=== PATIENT | female | born 1985 | race Caucasian/White ===

== ENCOUNTER → 2017-10-08 | Outpatient (CLI) | payer OTHER ==
[~2017-10-08] MED LIST: BUTASPCAFT; IBUP800 PO; LANOLIN TP; LEVSOD50 PO; NAPR375 PO; PRENATA CHEWAB1 EACH PO; RIZATRIPTAN10 MG; SUMA25 PO; TOPI25 PO
[2017-10-08 13:14] LABS: Appearance, Urine Hazy (Clear); Blood, Urine 2+ (Neg); Glucose Qualitative, Urine Neg (Neg); Ketones, Urine Neg (Neg); Leukocyte Esterase, Urine Neg (Neg); Nitrite, Urine Pos (Neg); Protein, Urine 1+ (Neg); Urobilinogen, Urine 3+ (Normal)
[2017-10-08 13:55] LABS: Bilirubin, Urine 2+ (Neg)
[2017-10-08 13:56] LABS: Bacteria Many /hpf; Color, Urine Orange (P-Yellow); Squamous Epithelial Cells Few /hpf (Few)
== END ==
LOC: LAB 12:33 → LAB SHORT 12:33
PROVIDERS: Obstetrics & Gynecology
DX: R35.0 Frequency of micturition (principal)
CPT/HCPCS: 81001; 87077; 87086; 87186

== ENCOUNTER → 2019-12-19 | Outpatient (CLI) | payer OTHER ==
[2019-12-19 16:53] LABS: Source, Urine Clean Catch
[2019-12-19 18:17] LABS: Bilirubin, Urine Neg (Neg); Blood, Urine 1+ (Neg); Glucose Qualitative, Urine 1+ (Neg); Ketones, Urine 2+ (Neg); Leukocyte Esterase, Urine 3+ (Neg); Nitrite, Urine Neg (Neg); Protein, Urine 1+ (Neg); Urobilinogen, Urine NORM (Normal)
[2019-12-19 18:28] LABS: Appearance, Urine Turbid (Clear); Color, Urine Yellow (P-Yellow)
[2019-12-19 18:31] LABS: Amorphous Heavy (0-Heavy); Bacteria Many /hpf; Calcium Oxalate Crystals Mod /hpf; Red Blood Cells, Urine 0-2 /hpf (0-2); Squamous Epithelial Cells Few /hpf (Few)
== END | disposition home or self-care (01) ==
LOC: LAB SHORT 16:46 → LAB 16:46
PROVIDERS: Obstetrics & Gynecology
DX: O09.523 Supervision of elderly multigravida, third trimester (principal)
CPT/HCPCS: 81001; 87086

== ENCOUNTER → 2020-01-31 | Outpatient (CLI) | payer OTHER | LOC: LAB SHORT 17:00 → LAB 17:00 | DX: O09.523 Supervision of elderly multigravida, third trimester (principal) | CPT/HCPCS: 87081; 87653 ==

== ENCOUNTER 2020-02-28 15:53 | Inpatient (IN) | payer OTHER ==
[~2020-02-28] VITALS: Ht 177.8 cm; Wt 109.0 kg
[2020-02-28 16:50] LABS: BASOPHILS ABSOLUTE AUTO 0.01 K/mm3 (0.00-0.23); BASOPHILS PERCENT AUTO 0 % (0-2); EOSINOPHILS ABSOLUTE AUTO 0.04 K/mm3 (0.00-0.68); EOSINOPHILS PERCENT AUTO 0 % (0-6); Hematocrit 41.6 % (33.0-51.0); Hemoglobin 13.4 g/dL (11.5-16.0); IMMATURE GRAN ABSOLUTE AUTO 0.03 K/mm3 (0.00-0.10); IMMATURE GRAN PERCENT AUTO 0 % (0-1); LYMPHOCYTES ABSOLUTE AUTO 1.89 K/mm3 (0.84-5.20); LYMPHOCYTES PERCENT AUTO 19 % (21-46); MONOCYTES ABSOLUTE AUTO 0.87 K/mm3 (0.16-1.47); MONOCYTES PERCENT AUTO 9 % (4-13); Mean Corpuscular HGB 29.3 pg (26.0-34.0); Mean Corpuscular HGB Conc 32.2 g/dL (31.5-36.5); Mean Corpuscular Volume 91 fL (80-100); Mean Platelet Volume 10.8 fL (9.1-12.4); NEUTROPHILS PERCENT AUTO 71 % (41-73); Platelet Count 291 K/mm3 (150-400); RDW Coefficient Variation 15.2 % (11.7-14.2); RDW Standard Deviation 50.4 fL (35.1-46.3); Red Blood Cell Count 4.58 M/mm3 (3.80-5.20); White Blood Cell Count 9.94 K/mm3 (4.00-11.30)
[2020-02-28] MEDS ORDERED: ZEBUTAL 50-3251 EAC1 (17:37)
[2020-02-28] MEDS ORDERED: PYRI100 PO (17:37)
[2020-02-28] MEDS ORDERED: DICLEGIS DR 101 EAC1 PO (17:37)
[2020-02-28] MEDS ORDERED: FERROUS SULFAT325 M3 (17:38)
[2020-02-28] MEDS ORDERED: PRENATAL TABLE1 EAC2 (17:39)
[2020-02-28] MEDS ORDERED: METO10 PO (17:39)
[2020-02-29 05:23] LABS: Hematocrit 36.8 % (33.0-51.0); Mean Corpuscular HGB 29.6 pg (26.0-34.0); Mean Corpuscular HGB Conc 32.6 g/dL (31.5-36.5); Mean Corpuscular Volume 91 fL (80-100); Mean Platelet Volume 10.7 fL (9.1-12.4); Platelet Count 226 K/mm3 (150-400); RDW Standard Deviation 49.5 fL (35.1-46.3); Red Blood Cell Count 4.05 M/mm3 (3.80-5.20); White Blood Cell Count 15.34 K/mm3 (4.00-11.30)
--- NOTE | 2020-02-29 22:27 | NUR ---
PT DISCHARGED WITH BABY IN [facility], WALKED OUT BY COMPUTER PATTERNMAKER AT 2200
== END 2020-02-29 20:04 | disposition home or self-care (01) | DRG 807 ==
LOC: OBS 15:53 → BC 16:04
PROVIDERS: ADMIT Obstetrics & Gynecology
PROC: 10E0XZZ Delivery of Products of Conception, External Approach (ICD-10-PCS; principal; 2020-02-28)
PROC: 0KQM0ZZ Repair Perineum Muscle, Open Approach (ICD-10-PCS; 2020-02-28)
PROC: 00HU33Z Insertion of Infusion Device into Spinal Canal, Percutaneous Approach (ICD-10-PCS; 2020-02-28)
PROC: 3E0R3BZ Introduction of Anesthetic Agent into Spinal Canal, Percutaneous Approach (ICD-10-PCS; 2020-02-28)
DX: O42.02 Full-term premature rupture of membranes, onset of labor within 24 hours of rupture (principal); Z37.0 Single live birth; O99.824 Streptococcus B carrier state complicating childbirth; O69.89X0 Labor and delivery complicated by other cord complications, not applicable or unspecified; Z20.828 Contact with and (suspected) exposure to other viral communicable diseases; Z3A.40 40 weeks gestation of pregnancy; O70.1 Second degree perineal laceration during delivery; O99.214 Obesity complicating childbirth; E66.9 Obesity, unspecified
CPT/HCPCS: 36415; 51702; 85025; 85027; 86850; 86900; 86901; J2590; J3010; J7120; U0004

== ENCOUNTER 2020-04-02 21:41 | Emergency (ER) | payer OTHER ==
[~2020-04-02] VITALS: Ht 177.8 cm; Wt 97.5 kg
[~2020-04-02 21:41] MED LIST changes: +DICLEGIS DR 101 EAC1 PO; +FERROUS SULFAT325 M3; +METO10 PO; +PRENATAL TABLE1 EAC2; +PYRI100 PO; +ZEBUTAL 50-3251 EAC1
[2020-04-02 22:09] LABS: BASOPHILS ABSOLUTE AUTO 0.02 K/mm3 (0.00-0.23); BASOPHILS PERCENT AUTO 0 % (0-2); EOSINOPHILS ABSOLUTE AUTO 0.29 K/mm3 (0.00-0.68); EOSINOPHILS PERCENT AUTO 4 % (0-6); Hematocrit 45.1 % (33.0-51.0); Hemoglobin 14.6 g/dL (11.5-16.0); IMMATURE GRAN ABSOLUTE AUTO 0.01 K/mm3 (0.00-0.10); IMMATURE GRAN PERCENT AUTO 0 % (0-1); LYMPHOCYTES ABSOLUTE AUTO 2.95 K/mm3 (0.84-5.20); LYMPHOCYTES PERCENT AUTO 37 % (21-46); MONOCYTES ABSOLUTE AUTO 0.61 K/mm3 (0.16-1.47); MONOCYTES PERCENT AUTO 8 % (4-13); Mean Corpuscular HGB 29.7 pg (26.0-34.0); Mean Corpuscular HGB Conc 32.4 g/dL (31.5-36.5); Mean Corpuscular Volume 92 fL (80-100); NEUTROPHILS ABSOLUTE AUTO 4.07 K/mm3 (1.96-9.15); NEUTROPHILS PERCENT AUTO 51 % (41-73); Platelet Count 243 K/mm3 (150-400); RDW Coefficient Variation 13.3 % (11.7-14.2); RDW Standard Deviation 45.3 fL (35.1-46.3); Red Blood Cell Count 4.91 M/mm3 (3.80-5.20); White Blood Cell Count 7.95 K/mm3 (4.00-11.30)
[2020-04-02 22:27] LABS: Alanine Aminotransfer (ALT/SGP 47 U/L (12-78); Albumin, Blood 3.5 g/dL (3.4-5.0); Alk Phos 173 U/L (50-136); Anion Gap 5 mmol/L (6-16); Aspartate Aminotrans (AST/SGOT 60 U/L (12-37); Bilirubin, Total 0.3 mg/dL (0.1-1.0); Blood Urea Nitrogen 15 mg/dL (8-24); Bun/Creatinine Ratio 22.4 (12.0-20.0); CO2, Blood 27 mmol/L (21-32); Chloride, Blood 110 mmol/L (98-108); Creatinine, Blood 0.67 mg/dL (0.40-1.00); Globulin, Blood 3.4 g/dL (2.2-4.0); Glomerular Filtration Rate >60 (60-); Glucose, Blood 107 mg/dL (70-99); Potassium, Blood 3.3 mmol/L (3.5-5.5); Sodium, Blood 142 mmol/L (136-145); Total Protein, Blood 6.9 g/dL (6.4-8.2)
[2020-04-02] MEDS ORDERED: Prozac20 MG PO (22:59)
[2020-04-02] MEDS ORDERED: [UNRECOGNIZED DRUG - OTHER] (23:00)
[2020-04-02 23:07] LABS: Source, Urine Clean Catch
[2020-04-02 23:11] LABS: Bilirubin, Urine Neg (Neg); Blood, Urine 1+ (Neg); Glucose Qualitative, Urine Neg (Neg); Ketones, Urine Neg (Neg); Leukocyte Esterase, Urine 3+ (Neg); Nitrite, Urine Neg (Neg); Protein, Urine 1+ (Neg); Urobilinogen, Urine 1+ (Normal)
[2020-04-02 23:14] LABS: Appearance, Urine Clear (Clear); Color, Urine Yellow (P-Yellow)
[2020-04-02] MEDS ORDERED: Norco 5-325 Ta1 EACH PO (23:20)
[2020-04-02 23:26] LABS: Bacteria Many /hpf; Mucus Light (0-Heavy); Red Blood Cells, Urine 0-2 /hpf (0-2); Squamous Epithelial Cells Many /hpf (Few)
== END 2020-04-03 00:01 | disposition home or self-care (01) ==
LOC: ER 21:41
PROVIDERS: Physician Assistant
DX: K80.50 Calculus of bile duct without cholangitis or cholecystitis without obstruction (principal); J45.909 Unspecified asthma, uncomplicated; Z88.6 Allergy status to analgesic agent; Z88.5 Allergy status to narcotic agent; Z79.899 Other long term (current) drug therapy
CPT/HCPCS: 36415; 76705; 80053; 81001; 81025; 83690; 85025; 87086; 96374; 99284-25; J2405; J7030

== ENCOUNTER → 2020-04-12 | Outpatient (CLI) | payer OTHER ==
[~2020-04-12] MED LIST changes: +Norco 5-325 Ta1 EACH PO; +Prozac20 MG PO; +[UNRECOGNIZED DRUG - OTHER]
== END ==
LOC: LAB 13:35 → LAB SHORT 13:35
DX: N39.0 Urinary tract infection, site not specified (principal)
CPT/HCPCS: 87077; 87086; 87186

== ENCOUNTER 2020-04-30 08:02 | Day surgery (SDC) | payer OTHER ==
[~2020-04-30] VITALS: Ht 177.8 cm; Wt 104.2 kg
--- NOTE | 2020-04-30 08:56 | NUR ---
Ambulatory in Day Surgery History, Chart, Medications and Allergies reviewed before start of procedure.Patient confirms NPO status and agrees with scheduled surgery. Patient reports completing Chlorhexadine shower X2 prior to admission to hospital.Surgical site prepped with 2% Chlorhexidine cloth wipe. Lungs clear T/O to Auscultation. Patient States Post-Procedure ride home has been arranged WITH
--- NOTE | 2020-04-30 14:41 | NUR ---
Patient up to Ambulate independently. Gait steady. Discharge instructions reviewed with patient. Patient verbalizes understanding. Copy given to patient to take home. Discharged via wheelchair to private car for ride home.
== END 2020-04-30 22:49 | disposition home or self-care (01) ==
LOC: ORD 08:02 → ORSCMMR 08:02 → ORD 09:30
PROVIDERS: Surgery
PROC: 0FT44ZZ Resection of Gallbladder, Percutaneous Endoscopic Approach (ICD-10-PCS; principal; 2020-04-30 09:30)
PROC: BF031ZZ Plain Radiography of Gallbladder and Bile Ducts using Low Osmolar Contrast (ICD-10-PCS; principal; 2020-04-30 09:30)
DX: K80.10 Calculus of gallbladder with chronic cholecystitis without obstruction (principal); E66.9 Obesity, unspecified; Z68.33 Body mass index [BMI] 33.0-33.9, adult; Z79.899 Other long term (current) drug therapy
CPT/HCPCS: 74300; 88304; C1729; J0690; J1100; J1885; J2250; J2405; J2704; J3010; J7120

== ENCOUNTER → 2022-03-02 | Outpatient (CLI) | payer OTHER | END | disposition home or self-care (01) | LOC: LAB 08:30 → LAB SHORT 08:30 | DX: R30.0 Dysuria (principal) | CPT/HCPCS: 87086 ==

== ENCOUNTER → 2022-06-30 | Outpatient (CLI) | payer OTHER ==
[2022-06-30 15:41] LABS: Source, Urine Clean Catch
[2022-06-30 16:52] LABS: Appearance, Urine Cloudy (Clear); Bilirubin, Urine Neg (Neg); Blood, Urine 4+ (Neg); Color, Urine Yellow (P-Yellow); Glucose Qualitative, Urine Neg (Neg); Ketones, Urine Neg (Neg); Leukocyte Esterase, Urine 3+ (Neg); Nitrite, Urine Neg (Neg); Protein, Urine 2+ (Neg); Urobilinogen, Urine NORM (Normal)
[2022-06-30 17:27] LABS: Bacteria Many /hpf; Red Blood Cells, Urine 50-100 /hpf (0-2); Squamous Epithelial Cells Few /hpf (Few); White Blood Cells, Urine 50-100 /hpf (0-5)
== END | disposition home or self-care (01) ==
LOC: LAB SHORT 15:38 → LAB 15:38
PROVIDERS: Obstetrics & Gynecology
DX: R30.9 Painful micturition, unspecified (principal)
CPT/HCPCS: 81001; 87077; 87086; 87186

== ENCOUNTER 2023-11-01 15:21 | Emergency (ER) | payer OTHER ==
[~2023-11-01] VITALS: Ht 177.8 cm; Wt 108.4 kg
[2023-11-01] MEDS ORDERED: Ketorolac Tromethamine 15mg Vial IV ONE (15:55)
[2023-11-01] MEDS ORDERED: DiphenhydrAMINE HCl 50 MG/ML 1ML Vial IV ONE (15:55)
[2023-11-01] MEDS ORDERED: NS 1,000 ML IV SCH (15:55)
[2023-11-01] MEDS ORDERED: Prochlorperazine Edisylate 10 mg Vial IV ONE (15:55)
[2023-11-01 16:37] LABS: BASOPHILS ABSOLUTE AUTO 0.03 K/mm3 (0.00-0.23); BASOPHILS PERCENT AUTO 0 % (0-2); EOSINOPHILS ABSOLUTE AUTO 0.01 K/mm3 (0.00-0.68); EOSINOPHILS PERCENT AUTO 0 % (0-6); Hematocrit 45.8 % (33.0-51.0); IMMATURE GRAN ABSOLUTE AUTO 0.03 K/mm3 (0.00-0.10); IMMATURE GRAN PERCENT AUTO 0 % (0-1); LYMPHOCYTES ABSOLUTE AUTO 0.95 K/mm3 (0.84-5.20); LYMPHOCYTES PERCENT AUTO 10 % (21-46); MONOCYTES ABSOLUTE AUTO 0.78 K/mm3 (0.16-1.47); MONOCYTES PERCENT AUTO 9 % (4-13); Mean Corpuscular HGB 29.1 pg (26.0-34.0); Mean Corpuscular HGB Conc 32.8 g/dL (31.5-36.5); Mean Corpuscular Volume 89 fL (80-100); Mean Platelet Volume 9.6 fL (9.1-12.4); NEUTROPHILS ABSOLUTE AUTO 7.43 K/mm3 (1.96-9.15); NEUTROPHILS PERCENT AUTO 81 % (41-73); Platelet Count 343 K/mm3 (150-400); RDW Coefficient Variation 13.2 % (11.7-14.2); RDW Standard Deviation 42.7 fL (35.1-46.3); Red Blood Cell Count 5.15 M/mm3 (3.80-5.20); White Blood Cell Count 9.23 K/mm3 (4.00-11.30)
[2023-11-01 16:39] LABS: Influenza A, PCR NEGATIVE (NEGATIVE); Influenza B, PCR NEGATIVE (NEGATIVE); Resp Syncytial Virus, PCR NEGATIVE (NEGATIVE); SARS-Cov-2 (COVID-19) PCR, MMC NEGATIVE (NEGATIVE)
[2023-11-01 17:02] LABS: Albumin, Blood 3.8 g/dL (3.4-5.0); Albumin/Globulin Ratio 1.1 (0.8-1.8); Bilirubin, Total 0.8 mg/dL (0.1-1.0); Bun/Creatinine Ratio 15.3 (12.0-20.0); Calcium, Blood 8.9 mg/dL (8.5-10.1); Creatinine, Blood 0.72 mg/dL (0.40-1.00); Globulin, Blood 3.5 g/dL (2.2-4.0); Potassium, Blood 3.8 mmol/L (3.5-5.5); Total Protein, Blood 7.3 g/dL (6.4-8.2)
[2023-11-01 18:01] VITALS: BP 107/59
== END 2023-11-01 18:04 | disposition home or self-care (01) ==
LOC: ER 15:21
PROVIDERS: Student in an Organized Health Care Education/Training Program
DX: R51.9 Headache, unspecified (principal); R10.9 Unspecified abdominal pain; J45.909 Unspecified asthma, uncomplicated; Z79.899 Other long term (current) drug therapy; Z91.018 Allergy to other foods
CPT/HCPCS: 0241U; 80053; 83690; 85025; 96361; 96374; 96375; 99284-25; J0780; J1200; J1885; J7030

== ENCOUNTER 2024-11-27 16:14 | Observation (INO) | payer OTHER ==
[~2024-11-27] VITALS: Ht 177.8 cm; Wt 104.3 kg
[~2024-11-27 16:14] MED LIST changes: -[UNRECOGNIZED DRUG - OTHER]; +[UNRECOGNIZED DRUG - OTHER] PO
[2024-11-27] MEDS ORDERED: TOPI25 PO (16:29)
[2024-11-27] MEDS ORDERED: Ondansetron HCl 2 MG / ML 2ML Vial IV ONE ×2 (16:30→18:05)
[2024-11-27 17:12] LABS: BASOPHILS ABSOLUTE AUTO 0.05 K/mm3 (0.00-0.23); BASOPHILS PERCENT AUTO 1 % (0-2); EOSINOPHILS ABSOLUTE AUTO 0.24 K/mm3 (0.00-0.68); EOSINOPHILS PERCENT AUTO 2 % (0-6); Hematocrit 42.2 % (33.0-51.0); Hemoglobin 13.4 g/dL (11.5-16.0); IMMATURE GRAN ABSOLUTE AUTO 0.03 K/mm3 (0.00-0.10); IMMATURE GRAN PERCENT AUTO 0 % (0-1); LYMPHOCYTES ABSOLUTE AUTO 2.52 K/mm3 (0.84-5.20); LYMPHOCYTES PERCENT AUTO 23 % (21-46); MONOCYTES ABSOLUTE AUTO 0.70 K/mm3 (0.16-1.47); MONOCYTES PERCENT AUTO 7 % (4-13); Mean Corpuscular HGB Conc 31.8 g/dL (31.5-36.5); Mean Corpuscular Volume 91 fL (80-100); NEUTROPHILS ABSOLUTE AUTO 7.28 K/mm3 (1.96-9.15); NEUTROPHILS PERCENT AUTO 67 % (41-73); NRBC ABSOLUTE 0.00 K/mm3 (0.00-0.02); NRBC Auto 0.0 /100 WBC (0.0-0.2); Platelet Count 358 K/mm3 (150-400); RDW Coefficient Variation 13.3 % (11.7-14.2); RDW Standard Deviation 44.1 fL (35.1-46.3)
[2024-11-27 17:28] LABS: Alanine Aminotransfer (ALT/SGP 19.0 U/L (12-78); Albumin, Blood 3.8 g/dL (3.4-5.0); Albumin/Globulin Ratio 1.2 (0.8-1.8); Anion Gap 9.0 mmol/L (3-11); Aspartate Aminotrans (AST/SGOT 16.0 U/L (12-37); Bilirubin, Total 0.3 mg/dL (0.1-1.0); Blood Urea Nitrogen 15.0 mg/dL (8-24); CO2, Blood 22.0 mmol/L (21-32); Calcium, Blood 8.7 mg/dL (8.5-10.1); Chloride, Blood 113.0 mmol/L (98-108); Creatinine, Blood 0.82 mg/dL (0.40-1.00); Globulin, Blood 3.2 g/dL (2.2-4.0); Glucose, Blood 119.0 mg/dL (70-99); Potassium, Blood 3.7 mmol/L (3.5-5.5); Sodium, Blood 140.0 mmol/L (136-145); Total Protein, Blood 7.0 g/dL (6.4-8.2)
[2024-11-27] MEDS ORDERED: NS 1,000 ML IV SCH (17:50)
[2024-11-27] MEDS ORDERED: RIZATRIPTAN10 M3 PO (18:18)
[2024-11-27 18:36] LABS: Source, Urine Clean Catch
[2024-11-27 18:46] LABS: Bilirubin, Urine Neg (Neg); Color, Urine Yellow (P-Yellow); Glucose Qualitative, Urine Neg (Neg); Ketones, Urine 1+ (Neg); Leukocyte Esterase, Urine Neg (Neg); Protein, Urine Neg (Neg); Specific Gravity, Urine 1.010 (1.003-1.022); Urobilinogen, Urine NORM (Normal)
[2024-11-27 19:05] LABS: Red Blood Cells, Urine 0-2 /hpf (0-2); White Blood Cells, Urine 0-2 /hpf (0-5)
[2024-11-27] MEDS ORDERED: FentaNYL Citrate 50 MCG/ML 2 ML Injection IV PRN (19:05)
[2024-11-27] MEDS ORDERED: Metoclopramide HCl 5MG / ML 2ML Vial IV ONE (22:50)
[2024-11-27] MEDS ORDERED: Prochlorperazine Edisylate 10 mg Vial IV PRN (23:45)
[2024-11-27] MEDS ORDERED: Ondansetron HCl 2 MG / ML 2ML Vial IV PRN (23:45)
[2024-11-28] MEDS ORDERED: TOPI25 PO (00:27)
[2024-11-28 01:43] VITALS: BP 120/82
--- NOTE | 2024-11-28 06:12 | NUR ---
SHIFT SUMMARY: Pt is admitted for pain with nausea and is a full code. Is alert and able to make needs known. ADLs have been IND. stated that she had some low level pain that was given APAP. iv to right AC is patent with dressing that is CDI. currently running LR at 125. Denies nausea when asked.
[2024-11-28 06:19] LABS: BASOPHILS ABSOLUTE AUTO 0.05 K/mm3 (0.00-0.23); BASOPHILS PERCENT AUTO 0 % (0-2); EOSINOPHILS ABSOLUTE AUTO 0.07 K/mm3 (0.00-0.68); EOSINOPHILS PERCENT AUTO 1 % (0-6); Hematocrit 39.7 % (33.0-51.0); Hemoglobin 13.0 g/dL (11.5-16.0); IMMATURE GRAN ABSOLUTE AUTO 0.04 K/mm3 (0.00-0.10); IMMATURE GRAN PERCENT AUTO 0 % (0-1); LYMPHOCYTES ABSOLUTE AUTO 3.59 K/mm3 (0.84-5.20); LYMPHOCYTES PERCENT AUTO 29 % (21-46); MONOCYTES ABSOLUTE AUTO 0.90 K/mm3 (0.16-1.47); MONOCYTES PERCENT AUTO 7 % (4-13); Mean Corpuscular HGB Conc 32.7 g/dL (31.5-36.5); Mean Corpuscular Volume 91 fL (80-100); NEUTROPHILS ABSOLUTE AUTO 7.90 K/mm3 (1.96-9.15); NEUTROPHILS PERCENT AUTO 63 % (41-73); NRBC ABSOLUTE 0.00 K/mm3 (0.00-0.02); NRBC Auto 0.0 /100 WBC (0.0-0.2); Platelet Count 327 K/mm3 (150-400); RDW Coefficient Variation 13.2 % (11.7-14.2); RDW Standard Deviation 43.7 fL (35.1-46.3)
[2024-11-28 06:49] LABS: Alanine Aminotransfer (ALT/SGP 16.0 U/L (12-78); Albumin, Blood 3.4 g/dL (3.4-5.0); Albumin/Globulin Ratio 1.1 (0.8-1.8); Anion Gap 9.0 mmol/L (3-11); Aspartate Aminotrans (AST/SGOT 13.0 U/L (12-37); Bilirubin, Total 0.4 mg/dL (0.1-1.0); Blood Urea Nitrogen 7.0 mg/dL (8-24); CO2, Blood 23.0 mmol/L (21-32); Calcium, Blood 8.3 mg/dL (8.5-10.1); Chloride, Blood 111.0 mmol/L (98-108); Creatinine, Blood 0.67 mg/dL (0.40-1.00); Globulin, Blood 3.0 g/dL (2.2-4.0); Glucose, Blood 121.0 mg/dL (70-99); Magnesium, Blood 2.1 mg/dL (1.6-2.4); Potassium, Blood 3.2 mmol/L (3.5-5.5); Sodium, Blood 140.0 mmol/L (136-145); Total Protein, Blood 6.4 g/dL (6.4-8.2)
[2024-11-28 07:14] VITALS: BP 111/70
--- NOTE | 2024-11-28 09:21 | NUR ---
Pt. is awake in bed when she welcomes my visit. Pt. 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 Pt. verbalized some details of her journey to the hospital. Pt. is unsettled by an uncertain diagnosis. Listened with empathy and a calming presence. Seek to normalize the Pt. experience. Prayed with the Pt. Pt. displayed evidence of being encouraged, and verbalized gratitude for the spiritual care visit.
[2024-11-28] MEDS ORDERED: Rizatriptan Benzoate 10 MG / TAB SoluTab SL PRN (11:25)
--- NOTE | 2024-11-28 11:39 | NUR ---
NOTE DR. ALDRIDGE REPORTED D/C LR AND ADMINISTER POTASSIUM CHLORIDE IV.
[2024-11-28] MEDS ORDERED: Ketorolac Tromethamine 15mg Vial IV ONE (12:55)
--- NOTE | 2024-11-28 15:31 | NUR ---
NOTE DR. ALDRIDGE ROUNDED ON PT. PT REPORTS HEADACHE, HAS HX OF MIGRAINES. DR. ALDRIDGE ORDERED RIZATRIPTAN ONE TIME ADDITIONAL ORDER FOR PAIN. DR. ALDRIDGE REPORTED. "IF UNSUCCESSFUL TRY AGAIN IN TWO HOURS."
[2024-11-28] MEDS ORDERED: Rizatriptan Benzoate 10 MG / TAB SoluTab PO ONE (15:35)
[2024-11-28] MEDS ORDERED: OMEP20ER PO (17:34)
[2024-11-28] MEDS ORDERED: ONDA4ODT MM (17:35)
--- NOTE | 2024-11-28 17:58 | NUR ---
NOTE INQUIRED PHARMACY ABOUT RIZATRIPTAN DOSE. PHARMACY STATED "MAX DOSE IS 20MG.". PT HAD 20MG TODAY. PT REPORTS IMPROVED MIGRAINE FROM LAST DOSE.
--- NOTE | 2024-11-28 18:03 | NUR ---
DISCHARGE NOTE PT A&OX4. PT ADMITTED DUE TO INTACTABLE NAUSEA. PT REPORTS HEADACHE, REPORTS C CHRONIC, "HAS A PAIN REGIMEN PLAN OUTPATIENT." PT INDEPENDENT IN ROOM. DIET WAS ADVANCED PER ORDER. PT RECEIVED ONE DOSE OF ZOFRAN TODAY DUE TO NAUSEA. PT REPORTS IMPROVED AFTER RECEIVING DOSE. PT EATS ADEQUATE. PT POTASSIUM REPLENISHED TODAY. WENT OVER DISCHARGE INSTRUCTIONS AND MEDS WITH PT. IV D/C. MEDS FAXED TO PREFERRED PHARMACY. PT ESCORTED TO PT ENTERANCE BY FOOT BY MAXIMO .
== END 2024-11-28 17:45 | disposition home or self-care (01) ==
LOC: ER 16:14 → MEDS 16:15
PROVIDERS: Student in an Organized Health Care Education/Training Program; ADMIT Student in an Organized Health Care Education/Training Program
DX: R11.0 Nausea (principal); R10.11 Right upper quadrant pain; Z90.49 Acquired absence of other specified parts of digestive tract
CPT/HCPCS: 36415; 74177; 76705; 80053; 81001; 83690; 83735; 84484; 84703; 85025; 87086; 93005; 93010; 96361; 96374-59; 96375; 96376; 99285-25; A9270; G0378; J1885; J2405; J2765; J3010; J3480; J7030; J7120; Q9967

== ENCOUNTER 2025-03-16 08:51 | Day surgery (SDC) | payer OTHER ==
[~2025-03-16] VITALS: Ht 177.8 cm; Wt 102.2 kg
[2025-03-16] VITALS (18 sets, daily range): BP systolic 90–130; BP diastolic 50–83
[~2025-03-16 08:51] MED LIST changes: +OMEP20ER PO; +ONDA4ODT MM; +RIZATRIPTAN10 M3 PO
[2025-03-16] MEDS ORDERED: FentaNYL Citrate 50 MCG/ML 2 ML Injection ONE ×3 (09:00→12:32)
[2025-03-16] MEDS ORDERED: Midazolam HCl 1MG / ML 2ML Vial ONE (09:00)
[2025-03-16] MEDS ORDERED: CeFAZolin Sodium 2,000 MG in NS 100 ML IV SCH (09:10)
[2025-03-16] MEDS ORDERED: PROM25 PO (09:20)
[2025-03-16] MEDS ORDERED: HYDROmorphone HCl/Pf 1MG SYR IV PRN ×2 (09:25→12:25)
[2025-03-16] MEDS ORDERED: Ondansetron HCl 2 MG / ML 2ML Vial IV PRN ×2 (09:25→12:20)
[2025-03-16] MEDS ORDERED: FentaNYL Citrate 50 MCG/ML 2 ML Injection IV PRN ×2 (09:25→09:30)
[2025-03-16] MEDS ORDERED: Ondansetron HCl 2 MG / ML 2ML Vial IV ONE (09:30)
[2025-03-16] MEDS ORDERED: Ketorolac Tromethamine 30mg Vial IV ONE (09:30)
[2025-03-16] MEDS ORDERED: CeFAZolin Sodium 2,000 MG VIAL ONE (09:35)
--- NOTE | 2025-03-16 09:46 | NUR ---
History, Chart, Medications and Allergies reviewed before start of procedure. Patient confirms NPO status and agrees with scheduled surgery. Pre-Op teaching done. Pt verbalizes understanding. Patient reports completing Chlorhexadine shower X2 prior to admission to hospital. Lungs clear T/O to Auscultation.
[2025-03-16] MEDS ORDERED: Bupivacaine 0.5% W/EPI 1:200000 SDV 30 ML Vial ONE (09:52)
[2025-03-16] MEDS ORDERED: Ketorolac Tromethamine 30mg Vial ONE ×3 (10:23→12:57)
[2025-03-16] MEDS ORDERED: Ondansetron HCl 2 MG / ML 2ML Vial ONE ×2 (10:23→12:57)
[2025-03-16] MEDS ORDERED: Dexamethasone Sod Phos 10 MG/ML 1ML VIAL ONE ×2 (10:23→12:57)
[2025-03-16] MEDS ORDERED: Glycopyrrolate 0.2 MG/ML 5ML VIAL ONE (11:00)
[2025-03-16] MEDS ORDERED: Sugammadex Sodium 200 MG/2ML SDV (100 MG/ML) ONE (11:57)
[2025-03-16] MEDS ORDERED: Metoclopramide HCl 5MG / ML 2ML Vial IV PRN (12:20)
[2025-03-16] MEDS ORDERED: FLU VACC TS2025-26(6MOS UP)/PF 45 MCG/0.5 ML SYRINGE IM SCH (12:25)
[2025-03-16] MEDS ORDERED: Ketorolac Tromethamine 30mg Vial IV PRN (12:30)
[2025-03-16] MEDS ORDERED: HYDROmorphone HCl/Pf 1MG SYR ONE (12:32)
--- NOTE | 2025-03-16 13:23 | NUR ---
POST OP S/P ROBOTIC TOTAL LAP HYSTER. X4 LAP SITES TO ABD WITH DERMABOND ARE CDI. KPAD TO ABD FOR COMFORT. NO CURRENT VAGINAL BLEEDING NOTED AT THIS TIME. POST OP VSS AND IN PROGRESS. OFFERING SIPS OF CLEARS AND CRACKERS. DENIES N/V. ORIENTED TO CALL LIGHT AND TREATMENT PLAN. PT VERBALIZED AN UNDERSTANDING. PT'S SPOUSE CALLED PER PT REQUEST FOR STATUS UPDATE.
[2025-03-16] MEDS ORDERED: ACET325 PO (18:24)
[2025-03-16] MEDS ORDERED: OXAYDO5 M1 PO (18:25)
--- NOTE | 2025-03-16 19:12 | NUR ---
DISCHARGE PATIENT DISCHARGE INSTRUCTIONS GIVEN, ALL QUESTIONS ANSWERED. IV D/C'ED. PATIENT LEFT WITH ALL BELIONGINGS, AT BEDSIDE.
== END 2025-03-16 19:04 | disposition home or self-care (01) ==
LOC: ORSCMMR 08:51 → ORD 10:00 → SURS 13:09 → ORSCMMR 19:04
DX: D25.9 Leiomyoma of uterus, unspecified (principal); N94.6 Dysmenorrhea, unspecified; R10.20 Pelvic and perineal pain unspecified side; N80.329 Endometriosis of the posterior cul-de-sac, unspecified depth; F41.8 Other specified anxiety disorders; J45.909 Unspecified asthma, uncomplicated; E66.01 Morbid (severe) obesity due to excess calories; Z68.32 Body mass index [BMI] 32.0-32.9, adult
CPT/HCPCS: 86850; 86900; 86901; 88307; A9270; J0690; J1100; J1171; J1885; J2250; J2405; J2704; J3010; J7120